=== PATIENT | female | born 1985 | race Caucasian/White ===

== ENCOUNTER 2016-10-09 07:55 | Emergency (ER) | payer OTHER ==
[~2016-10-09] VITALS: Ht 172.7 cm; Wt 95.3 kg
--- NOTE | 2016-10-09 09:58 | PHYS DOC ---
Past Medical History Past Medical History: Anxiety, Hypertension Past Surgical History: Tubal ligation, Other Additional Past Surgical Histo: tubes removed 10/2013, right breast tumors removed Additional Information: 09/03-11/03 ppd Alcohol Use: Occasionally Drug Use: None Social History Narrative: denies Adult General Chief Complaint Chief Complaint: NAUSEA/VOMITING/DIARRHA HPI HPI Patient is a 31 year old female presents emergency Department today with complaint of nausea, vomiting and diarrhea that began earlier today. Patient's that she's exposed to her had similar symptoms this past weekend. She denies any history gastrointestinal diseases. She reports nonbloody, nonbilious emesis as well as nonbloody, nonblack diarrhea. She denies any focal abdominal pain. Review of Systems Review of Systems Constitutional: Denies fever or chills [] Eyes: Denies change in visual acuity, redness, or eye pain [] HENT: Denies nasal congestion or sore throat [] Respiratory: Denies cough or shortness of breath [] Cardiovascular: No additional information not addressed in HPI [] GI: Denies abdominal pain, nausea, vomiting, bloody stools or diarrhea [] : Denies dysuria or hematuria [] Musculoskeletal: Denies back pain or joint pain [] Integument: Denies rash or skin lesions [] Neurologic: Denies headache, focal weakness or sensory changes [] Endocrine: Denies polyuria or polydipsia [] Current Medications Current Medications Current Medications Medications (Trade) Dose Ordered Sig/Lexii Start Time Stop Time Status Last Admin Dose Admin Ondansetron HCl (Zofran Odt) 4 mg 1X ONCE 10/09/16 10:00 10/09/16 10:01 DC 10/09/16 10:12 4 MG Allergies Allergies Allergies Coded Allergies Type Severity Reaction Last Updated Verified No Known Drug Allergies 02/27/14 No Physical Exam Physical Exam Constitutional: Well developed, well nourished, no acute distress, non-toxic appearance. HENT: Normocephalic, atraumatic, bilateral external ears normal, oropharynx moist, no oral exudates, nose normal. [] Eyes: PERRLA, EOMI, conjunctiva normal, no discharge. [] Neck: Normal range of motion, no tenderness, supple, no stridor. [] Cardiovascular:Heart rate regular rhythm, no murmur [] Lungs & Thorax: Bilateral breath sounds clear to auscultation [] Abdomen: Abdomen is soft and nondistended. There are hyperactive bowel sounds all 4 quadrants. There is no palpable defect to the abdominal wall or pulsatile masses. There is no focal area of tenderness, rebound or guarding. Skin: Warm, dry, no erythema, no rash. [] Back: No tenderness, no CVA tenderness. [] Extremities: No tenderness, no cyanosis, no clubbing, ROM intact, no edema. [] Neurologic: Alert and oriented X 3, normal motor function, normal sensory function, no focal deficits noted. [] Psychologic: Affect normal, judgement normal, mood normal. [] Current Patient Data Vital Signs Vital Signs Date Time Temp Pulse Resp B/P Pulse Ox O2 Delivery O2 Flow Rate FiO2 10/09/16 10:13 117 20 144/91 97 Room Air 10/09/16 09:34 97.8 97.8 EKG EKG [] Radiology/Procedures Radiology/Procedures [] Course & Med Decision Making Course & Med Decision Making Pertinent Labs and Imaging studies reviewed. (See chart for details) [] Dragon Disclaimer Dragon Disclaimer This electronic medical record was generated, in whole or in part, using a voice recognition dictation system. Departure Departure Impression: Primary Impression: Gastroenteritis Disposition: 01 HOME, SELF-CARE Condition: GOOD Referrals: JOANNE MCNAIR (PCP) Patient Instructions: Viral Gastroenteritis, [id number] Additional Instructions: 1. Take the medication as prescribed. 2. Clear fluids for hydration as discussed. Avoid drinking ice cold beverages as they can cause stomach cramping. 3. Rest at home today. 4. Review the discharge instructions provided for self-care and reasons to return the emergency department. 5. Contact your primary care doctor's office to schedule follow-up appointment if no improvement in 2-3 days. Scripts Ondansetron (Zofran Odt)4 Mg Tab.rapdis4 Mg PO every 8 hours PRN NAUSEA/ VOMITING #14 TAB Prov:KEI STANFORD 10/09/16 KEI STANFORD Oct 09, 2016 09:58
[2016-10-09] MEDS ORDERED: ONDANSETRON ODT 4 MG TAB.RAPDIS PO ONE (10:00)
[2016-10-09 10:13] VITALS: BP 144/91
[2016-10-09] MEDS ORDERED: ONDA4TAB10 PO (10:36)
== END 2016-10-09 10:43 | disposition home or self-care (01) ==
LOC: ER 07:55
DX: K52.9 Noninfective gastroenteritis and colitis, unspecified (principal); I10 Essential (primary) hypertension
CPT/HCPCS: 99283; Q0162

== ENCOUNTER 2017-12-10 10:47 | Emergency (ER) | payer OTHER ==
[2017-12-10 11:46] LABS: NEGATIVE OBC STREP NEG; POSITIVE OBC STREP POS
[2017-12-10] MEDS: DEXAMETHASONE SOD PHOS 4 MG/ML VIAL PO (11:51)
== END 2017-12-10 12:15 | disposition home or self-care (01) ==
LOC: ER 10:47
DX: J02.0 Streptococcal pharyngitis (principal); I10 Essential (primary) hypertension
CPT/HCPCS: 87880; 99283; J1100

== ENCOUNTER 2018-02-02 11:36 | Emergency (ER) | payer OTHER ==
[2018-02-02 13:12] LABS: NEGATIVE OBC STREP NEG; POSITIVE OBC STREP POS
== END 2018-02-02 12:49 | disposition home or self-care (01) ==
LOC: ER 12:49
DX: J02.0 Streptococcal pharyngitis (principal); I10 Essential (primary) hypertension
CPT/HCPCS: 87880; 99283